=== PATIENT | male | born 1960 | race Caucasian/White ===

== ENCOUNTER 2024-03-17 09:35 | Outpatient (CLI) | payer OTHER, SELFPAY ==
--- NOTE | 2024-03-17 10:15 | MR_ITS ---
WS: [id number] MRI NECK WITH CONTRAST TECHNIQUE: Noncontrast axial T1, axial T2 FSE fat sat, coronal T2 fat sat, coronal T1, coronal T1 fat sat, sagittal T2 fat sat, plus contrast enhanced coronal, sagittal, and axial T1 fat sat images obta ined. CLINICAL INFORMATION: OTALGIA,BILATERAL COMPARISON: None. FINDINGS: Normal parotid glands. Normal submandibular glands. No evidence of supraglottic or glottic mass. Norm al parapharyngeal fat. Normal posterior nasopharynx. Normal subglottic airway. Lung apices are normal . Normal posterior fossa. Mild spondylitic changes cervical spine with mild disc bulging C4-C5 C5-C6 and C6-C7. Small disc oste ophyte protrusion at T2-3. 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 MR/MR orbit face neck wo/w* [id number] IMPRESSION: No acute neck findings.
--- NOTE | 2024-03-17 11:00 | MR_ITS ---
WS: [id number] MRI HEAD WITH CONTRAST WITH ATTENTION TO THE INTERNAL AUDITORY CANALS TECHNIQUE: Sagittal T1, T2 axial, T2 axial flair, axial susceptibility weighted imaging, axial diffus ion weighted images, and coronal T2 images were obtained. Pre and post T1 axial and post T1 coronal i mages. ADC and FSPGR images. Post gadolinium images with attention to the internal auditory canals. A xial fiesta imaging. CLINICAL INFORMATION: MIXED CONDUCTIVE SENSORINEURAL HEARING LOSS COMPARISON: None. FINDINGS: No evidence of restricted diffusion to suggest acute ischemia. Ventricular system and basal cisterns are patent. Minimal small vessel changes. Mild parenchymal volume loss. Normal posterior fossa. Edna l vascular flow voids at the skull base. No extra-axial fluid collections. No evidence of mass or mas s effect. Paranasal sinuses and mastoid air cells are well aerated. No hemosiderin on the susceptibly weighted images. Proximal 7th and 8th cranial nerves appear normal. No evidence of enhancing IAC or CP angle mass. Nor mal trigeminal nerve root entry zones. MR/MR iac's wo/w con* [id number] IMPRESSION: 1. No evidence of restricted diffusion to suggest acute ischemia. 2. No evidence of enhancing IAC or CP angle mass. Normal trigeminal nerve root entry zones. 3. Paranasal sinuses and mastoid air cells are well aerated. 4. No hemosiderin on the susceptibly weighted images.
[2024-03-17] MEDS: gadobenate dimeglumine 20 mL vial 18 ML IV (11:41)
== END 2024-03-17 09:36 | disposition home or self-care (01) ==
DX: H92.03 Otalgia, bilateral (principal); H90.8 Mixed conductive and sensorineural hearing loss, unspecified; H90.5 Unspecified sensorineural hearing loss; M19.011 Primary osteoarthritis, right shoulder
CPT/HCPCS: 70543; 70553